=== PATIENT | female | born 1955 | race Caucasian/White ===

== ENCOUNTER → 2019-06-04 | Day surgery (SDC) | payer OTHER ==
[~2019-06-04] MED LIST: Lactated Ringers 1,000 ML IV SCH; Propofol 200 MG/20 ML SDV IV ONE; fentaNYL 100 MCG/2 ML SDV IV ONE
--- NOTE | 2019-06-04 12:02 | OR ---
DATE OF OPERATION: 06/04/2019 PREOPERATIVE DIAGNOSIS: SCREENING COLONOSCOPY. POSTOPERATIVE DIAGNOSIS: SCREENING COLONOSCOPY. SURGEON: Syd Rich MD PROCEDURE: FULL-LENGTH COLONOSCOPY WITH FORCEPS POLYP REMOVAL X2. ANESTHESIA: MAC. COMPLICATIONS: None. SPECIMEN: Two small sessile polyps, each approximately 3 to 4 mm. FINDINGS: 1. Full-length colonoscopy. 2. Pandiverticulosis, moderate. 3. Sessile polyps x2. RECOMMENDATIONS: Followup colonoscopy in 5 years. INDICATIONS: The patient was seen by her primary provider and is due for a colon cancer screen. DESCRIPTION OF PROCEDURE: The patient was prepped and draped, placed in the left lateral decubitus position. A lubricated Olympus colonoscope was inserted and with ease advanced to the cecum. Direct visualization of the ileocecal valve and appendiceal orifice was accomplished. The bowel prep was fine. Upon withdrawal of the scope, the patient does have significant diverticular disease extending all the way over to the hepatic flexure, mild to moderate in severity. No inflammatory changes were seen. She had two small sessile polyps, one at hepatic flexure and one in the sigmoid colon. Each small, less than 4 mm, removed with forceps biopsies in their entirety. There were no other worrisome polyps, masses, lesion, ulceration, or bleeding sites. No vascular abnormalities or signs of colitis. The rectal vault was benign. Retroflexion showed no perianal lesions. Air was suctioned, scope removed without complication. VICKI/JUNG /[id number]
== END ==
LOC: CC.SDS 08:50
PROVIDERS: ATTEND Family Medicine
DX: Z12.11 Encounter for screening for malignant neoplasm of colon (principal); K63.5 Polyp of colon; K57.30 Diverticulosis of large intestine without perforation or abscess without bleeding; E78.5 Hyperlipidemia, unspecified; E03.9 Hypothyroidism, unspecified; N32.81 Overactive bladder; Z88.1 Allergy status to other antibiotic agents; Z79.82 Long term (current) use of aspirin; Z79.899 Other long term (current) drug therapy
CPT/HCPCS: 45380; J2704; J3010; J7120

== ENCOUNTER 2020-09-30 18:54 | Emergency (ER) | payer OTHER ==
[2020-09-30 19:00] VITALS: PULSE 88
[2020-09-30 19:17] VITALS: BP 158/98
[2020-09-30] MEDS ORDERED: Take Home: Levofloxacin 500 MG Tab, 1 Tab Pack PO ONE (19:18)
--- NOTE | 2020-09-30 19:21 | EDM.PDOC ---
ED HPI GENERAL MEDICAL PROBLEM - General Chief Complaint: General Stated Complaint: BLADDER INFECTION Time Seen by Provider: 09/30/20 19:00 Source of Information: Reports: Patient History Limitations: Reports: No Limitations - History of Present Illness Onset Date: 09/28/20 Duration: Day(s): (2) Severity: Mild Improves with: Reports: None Worsens with: Reports: None Associated Symptoms: Reports: No Other Symptoms. Denies: Confusion, Chest Pain, Cough, cough w sputum, Diaphoresis, Fever/Chills, Headaches, Loss of Appetite, Malaise, Nausea/Vomiting, Rash, Seizure, Shortness of Breath, Syncope, Weakness - Related Data Allergies Allergy/AdvReac Type Severity Reaction Status Date / Time cephalexin Allergy Rash Verified 09/30/20 18:56 Home Meds: Home Meds Biotin 1 mg PO DAILY 06/03/19 [History] Calcium Carb/D3/Mag AA Chelate [Coral Calcium Capsule] 1 each PO DAILY 06/03/19 [History] Cholecalciferol (Vitamin D3) [Vitamin D3] 1,000 unit PO DAILY 06/03/19 [History] Flaxseed/Omega3,6,9/Fatty Acid [Flax Seed Oil 1,300 mg Softgel] 1 each PO BID 06/03/19 [History] Levothyroxine 125 mcg PO DAILY 06/03/19 [History] Multivitamin [Daily Multiple Vitamin] 1 each PO DAILY 06/03/19 [History] Pravastatin Sodium [Pravastatin (Pravachol)] 40 mg PO DAILY 06/03/19 [History] estradioL [Estradiol] 1 mg PO DAILY 06/03/19 [History] valACYclovir [Valtrex] 2,000 mg PO Q12H PRN 06/03/19 [History] levoFLOXacin [Levaquin] 500 mg PO DAILY 5 Days #3 tab 09/30/20 [Rx] Past Medical History Cardiovascular History: Reports: Hypertension - Past Surgical History Female Surgical History: Reports: Hysterectomy Social & Family History - Tobacco Use Tobacco Use Status *Q: Never Tobacco User - Caffeine Use Caffeine Use: Reports: Coffee - Recreational Drug Use Recreational Drug Use: No ED ROS GENERAL - Review of Systems Review Of Systems: See Below Constitutional: Reports: No Symptoms HEENT: Reports: No Symptoms Respiratory: Reports: No Symptoms Cardiovascular: Reports: No Symptoms Endocrine: Reports: No Symptoms GI/Abdominal: Reports: Abdominal Pain. Denies: Diarrhea, Nausea, Vomiting : Reports: Flank Pain (bilateral), Frequency, Urgency. Denies: Urinary Retention Musculoskeletal: Reports: No Symptoms Skin: Reports: No Symptoms Neurological: Reports: No Symptoms Psychiatric: Reports: No Symptoms Hematologic/Lymphatic: Reports: No Symptoms Immunologic: Reports: No Symptoms ED EXAM, GENERAL - Physical Exam Exam: See Below Exam Limited By: No Limitations General Appearance: Alert, WD/WN, No Apparent Distress Respiratory/Chest: No Respiratory Distress, Lungs Clear, Normal Breath Sounds, No Accessory Muscle Use Cardiovascular: Normal Peripheral Pulses, Regular Rate, Rhythm, No Edema, No Gallop, No JVD, No Murmur, No Rub Peripheral Pulses: 2+: Radial (L), Radial (R) GI/Abdominal: Normal Bowel Sounds, Soft, Tender (mild Suprapubic) (Female) Exam: Deferred Back Exam: Normal Inspection, Full Range of Motion. No: CVA Tenderness (L), CVA Tenderness (R) Extremities: Normal Inspection Neurological: Alert, Oriented Psychiatric: Normal Affect, Normal Mood Skin Exam: Warm, Dry, Normal Color, No Rash Course - Vital Signs Last Recorded V/S: Last Vital Signs Temp 98.2 F 09/30/20 18:59 Pulse 88 09/30/20 18:59 Resp 18 09/30/20 18:59 BP 158/98 H 09/30/20 19:17 Pulse Ox 98 09/30/20 18:59 - Orders/Labs/Meds Orders: Active Orders 24 hr Category Date Time Status Phenazopyridine [Take Home: Phenazopyridine, 4 Tab Pack Med 09/30/20 19:22 Once ] 1 packet .XX ONETIME ONE Labs: Laboratory Tests 09/30/20 Range/Units 19:02 Urine Color Yellow (YELLOW) Urine Appearance Clear (CLEAR) Urine pH 6.0 (4.5-8.0) Ur Specific [place] 1.010 (1.003-1.020) Urine Protein Negative (NEGATIVE) mg/dL Urine Glucose (UA) Negative (NEGATIVE) mg/dL Urine Ketones Negative (NEGATIVE) mg/dL Urine Occult Blood Trace-intact H (NEGATIVE) Urine Nitrite Positive H (NEGATIVE) Urine Bilirubin Negative (NEGATIVE) Urine Urobilinogen 0.2 (0.2-1.0) EU/dL Ur Leukocyte Esterase Negative (NEGATIVE) Urine RBC 0-5 (0-5) /HPF Urine WBC Not seen (0-5) /HPF Ur Epithelial Cells Few H (NOT SEEN) /HPF Meds: Medications Discontinued Medications Generic Name Dose Route Start Last Admin Trade Name Josh PRN Reason Stop Dose Admin Levofloxacin 2 packet 09/30/20 19:18 Take Home: Levofloxacin 500 Mg Tab, 1 Tab Pack PO 09/30/20 19:19 ONETIME ONE Departure - Departure Time of Disposition: 19:15 Disposition: Home, Self-Care 01 Condition: Fair Clinical Impression: UTI, Urinary tract infectious disease - Discharge Information *PRESCRIPTION DRUG MONITORING PROGRAM REVIEWED*: Not Applicable *COPY OF PRESCRIPTION DRUG MONITORING REPORT IN PATIENT REDDY: Not Applicable Prescriptions: levoFLOXacin [Levaquin] 500 mg PO DAILY 5 Days #3 tab Instructions: Urinary Tract Infection, Adult, [id number] Forms: ED Department Discharge Additional Instructions: Followup with your primary care provider Return to the ER for worsening of condition or any emergent concerns such as fever, vomiting, or other concerns Increase fluids Levaquin 500mg 1 pill once a day for total of 5 days #2 take home, #3 sent to pharmacy Phenazopyridine 100mg 1 pill every 12 hours for urinary pain if needed #4 take home Sepsis Event Note (ED) - Evaluation Sepsis Screening Result: No Definite Risk - Focused Exam Vital Signs: Vital Signs Temp Pulse Resp BP Pulse Ox 09/30/20 19:17 158/98 H 09/30/20 18:59 98.2 F 88 18 171/98 H 98 - My Orders Last 24 Hours: My Active Orders 09/30/20 19:22 Phenazopyridine [Take Home: Phenazopyridine, 4 Tab Pack] 1 packet .XX ONETIME ONE - Assessment/Plan Last 24 Hours: My Active Orders 09/30/20 19:22 Phenazopyridine [Take Home: Phenazopyridine, 4 Tab Pack] 1 packet .XX ONETIME ONE Plan: PLEASE SEE RN NOTE FOR PFSH
[2020-09-30] MEDS ORDERED: Take Home: Phenazopyridine 95 MG Tab, 4 Tab Pack ONE (19:22)
== END 2020-09-30 19:30 | disposition home or self-care (01) ==
LOC: CC.ED 18:54
DX: N39.0 Urinary tract infection, site not specified (principal); I10 Essential (primary) hypertension; Z79.899 Other long term (current) drug therapy
CPT/HCPCS: 81001; 99283; A9270-GY

== ENCOUNTER 2024-05-23 09:40 | Emergency (ER) | payer BC ==
[2024-05-23 09:57] LABS: BASOPHILS ABSOLUTE AUTO 0.03 10^3/uL (0.00-0.50); BASOPHILS PERCENT AUTO 0.2 % (0-1); EOSINOPHILS ABSOLUTE AUTO 0.17 10^3/uL (0.00-1.50); EOSINOPHILS PERCENT AUTO 1.4 % (0-6); HEMATOCRIT 38.1 % (37.0-47.0); HEMOGLOBIN 12.3 g/dL (12.0-16.0); IMMATURE GRAN ABSOLUTE AUTO 0.01 10^3/uL (0.00-0.49); IMMATURE GRAN PERCENT AUTO 0.1 % (0.0-4.9); LYMPHOCYTES ABSOLUTE AUTO 2.59 10^3/uL (0.60-5.00); LYMPHOCYTES PERCENT AUTO 20.7 % (24-44); MEAN CORPUSCULAR HEMOGLOBIN 29.9 pg (27.0-32.0); MEAN CORPUSCULAR HGB CONC 32.3 g/dL (32.0-36.0); MEAN CORPUSCULAR VOLUME 92.7 fL (83.0-97.0); MONOCYTES ABSOLUTE AUTO 0.93 10^3/uL (0.00-1.50); MONOCYTES PERCENT AUTO 7.4 % (0-10); NEUTROPHILS ABSOLUTE AUTO 8.78 x10^3/uL (1.80-8.00); NEUTROPHILS PERCENT AUTO 70.2 % (41-71); PLATELET COUNT,PLT 292 10^3/uL (150-400); RED BLOOD CELL COUNT 4.11 x10^6/uL (4.00-5.50); WHITE BLOOD CELL COUNT,WBC 12.5 10^3/uL (4.0-11.0)
[2024-05-23 10:21] LABS: ALBUMIN 3.7 g/dL (3.4-5.0); BILIRUBIN TOTAL 0.4 mg/dL (0.0-1.0); C-REACTIVE PROTEIN 3.8 mg/dL (<=0.50); CALCIUM 8.9 mg/dL (8.4-10.1); CREATININE 1.1 mg/dL (0.6-1.0); EST CRCL DRUG DOSING (CG) 39.79 mL/min; POTASSIUM,K 4.2 mEq/L (3.5-5.0); PROTEIN TOTAL,TP 7.3 g/dL (6.4-8.2)
[2024-05-23] MEDS: Take Home: Amoxicillin/Clavulanate K 875-125 MG Tab, 2 Tab Pack PO ONE (10:52)
== END 2024-05-23 11:00 | disposition home or self-care (01) ==
LOC: CC.ED 09:40
DX: J20.9 Acute bronchitis, unspecified (principal); I10 Essential (primary) hypertension; Z88.1 Allergy status to other antibiotic agents; Z79.890 Hormone replacement therapy; Z79.899 Other long term (current) drug therapy; Z90.710 Acquired absence of both cervix and uterus
CPT/HCPCS: 36415; 71046; 80053; 85025; 86140; 87428-QW; 99285; A9270-GY

== ENCOUNTER 2024-06-18 07:22 | Day surgery (SDC) | payer BC ==
[2024-06-18] MEDS: Lactated Ringers 1,000 ML IV SCH (07:36)
== END 2024-06-18 09:30 | disposition home or self-care (01) ==
LOC: CC.SDS 07:22
PROVIDERS: ATTEND Family Medicine
DX: Z12.11 Encounter for screening for malignant neoplasm of colon (principal); K57.30 Diverticulosis of large intestine without perforation or abscess without bleeding; Z86.0100 Personal history of colon polyps, unspecified; K21.9 Gastro-esophageal reflux disease without esophagitis; E78.5 Hyperlipidemia, unspecified; E03.9 Hypothyroidism, unspecified; Z79.890 Hormone replacement therapy; Z79.899 Other long term (current) drug therapy
CPT/HCPCS: 45378; J7120